=== PATIENT | male | born 1990 | race Caucasian/White ===

== ENCOUNTER → 2018-07-21 09:15 | Outpatient (CLI) | payer BC, SELFPAY ==
--- NOTE | 2018-07-21 09:19 | RAD_ITS ---
STUDY: AIR-CONTRAST UPPER GI SERIES. REASON FOR EXAM: Male, 28 years old. Dyspepsia. FLUOROSCOPY TIME (if supplied): (0:44) minutes/seconds. 19 images were obtained. TECHNIQUE: The patient ingested barium. Multiple images of the esophagus, stomach and duodenum were obtained. COMPARISON: None. FINDINGS: The esophagus is unremarkable. There is no evidence of obstruction. No gastroesophageal reflux. No mass lesion is seen. The stomach and duodenum are unremarkable. There is no evidence of ulceration. No mass lesion is seen. The patient is status post cholecystectomy. RAD/Upper GI Series Only IMPRESSION: Unremarkable examination. Electronically Signed: Ryan Bradley, at 10:11 EDT , Service support ,
== END ==
PROVIDERS: Family Provider Family Medicine; PCP Family Medicine; Referring Provider Family Medicine; Visit Provider Family Medicine
DX: R10.13 Epigastric pain (principal)
CPT/HCPCS: 74246

== ENCOUNTER 2020-01-16 11:00 | Outpatient (RCR) | payer SELFPAY | END 2020-01-16 23:59 | disposition home or self-care (01) | LOC: NS 11:00 | PROVIDERS: PCP Family Medicine; Visit Provider Family Medicine | DX: Z71.3 Dietary counseling and surveillance (principal); E66.9 Obesity, unspecified | CPT/HCPCS: 97802; 97803 ==

== ENCOUNTER → 2020-10-19 14:42 | Outpatient (CLI) | payer BC, SELFPAY ==
[2020-10-19 18:36] LABS: ALB/GLOB Ratio 0.9 RATIO (0.9-2.4); AST(SGOT) 19 U/L (15-37); Alanine Aminotransfer ALT/SGPT 29 U/L (16-61); Albumin, Serum 3.7 g/dL (3.2-5.0); Alkaline Phosphatase 70 U/L (45-117); Anion Gap 8 (5-15); BUN 9 mg/dL (7-18); BUN/Creat Ratio 12.2 RATIO (10-20); Calcium,Total 9.1 mg/dL (8.5-10.1); Chloride 106 mmol/L (98-107); Cholesterol 172 mg/dL (200); Creatinine, Serum 0.74 mg/dL (0.70-1.30); EST Glomerular Filtration Rate 130 mL/min (>60); Est Glom Filt Rate - Afr Amer 157 mL/min (>60); Globulin 4.3 g/dL (2.2-4.2); Glucose 87 mg/dL (74-106); High Density Lipoprotein 37 mg/dL; Sodium Level 138 mmol/L (136-145); Thyroid Stim Hormone (TSH) 1.02 uIU/mL (0.358-3.74); Triglycerides 121 mg/dL; Very Low Density Lipoprotein 24 mg/dL (5-40)
== END ==
LOC: MFPLAB 14:46
PROVIDERS: PCP Family Medicine; Visit Provider Family Medicine
DX: E66.9 Obesity, unspecified (principal)
CPT/HCPCS: 36415; 80053; 80061; 84403; 84443

== ENCOUNTER → 2022-05-29 | Outpatient (CLI) | payer BC, SELFPAY ==
[2022-05-29 15:59] LABS: Anion Gap 5 (5-15); BUN 13 mg/dL (7-18); BUN/Creat Ratio 14.2 RATIO (10-20); Calcium,Total 9.1 mg/dL (8.5-10.1); Chloride 107 mmol/L (98-107); Cholesterol 140 mg/dL (200); Creatinine, Serum 0.91 mg/dL (0.70-1.30); EST Glomerular Filtration Rate 101 mL/min (>60); Est Glom Filt Rate - Afr Amer 122 mL/min (>60); Glucose 97 mg/dL (74-106); High Density Lipoprotein 34 mg/dL; Potassium 3.8 mmol/L (3.5-5.1); Sodium Level 138 mmol/L (136-145); Triglycerides 105 mg/dL; Very Low Density Lipoprotein 21 mg/dL (5-40)
== END | disposition home or self-care (01) ==
LOC: MFPLAB 11:30
PROVIDERS: PCP Family Medicine; Referring Provider Family Medicine; Visit Provider Family Medicine
DX: Z13.1 Encounter for screening for diabetes mellitus (principal); Z13.820 Encounter for screening for osteoporosis; R79.89 Other specified abnormal findings of blood chemistry
CPT/HCPCS: 36415; 80048; 80061; 84403

== ENCOUNTER 2023-03-17 14:08 | Outpatient (RCR) | payer BC, SELFPAY | END 2023-03-25 23:59 | LOC: NS 14:08 | PROVIDERS: PCP Family Medicine; Visit Provider Internal Medicine Pulmonary Disease | DX: Z71.3 Dietary counseling and surveillance (principal); E66.01 Morbid (severe) obesity due to excess calories; Z68.43 Body mass index [BMI] 50.0-59.9, adult; G47.33 Obstructive sleep apnea (adult) (pediatric); R09.02 Hypoxemia | CPT/HCPCS: 97802 ==

== ENCOUNTER 2023-04-16 08:00 | Outpatient (RCR) | payer BC, SELFPAY | END 2023-04-23 23:59 | LOC: NS 08:00 | PROVIDERS: PCP Family Medicine; Referring Provider Internal Medicine Pulmonary Disease; Visit Provider Internal Medicine Pulmonary Disease | DX: Z71.3 Dietary counseling and surveillance (principal); E66.01 Morbid (severe) obesity due to excess calories; Z68.44 Body mass index [BMI] 60.0-69.9, adult; G47.33 Obstructive sleep apnea (adult) (pediatric); R09.02 Hypoxemia | CPT/HCPCS: 97803 ==

== ENCOUNTER 2023-05-07 09:00 | Outpatient (RCR) | payer BC, SELFPAY | END 2023-05-24 23:59 | LOC: NS 09:00 | PROVIDERS: PCP Family Medicine; Referring Provider Internal Medicine Pulmonary Disease; Visit Provider Internal Medicine Pulmonary Disease | DX: Z71.3 Dietary counseling and surveillance (principal); E66.01 Morbid (severe) obesity due to excess calories; Z68.44 Body mass index [BMI] 60.0-69.9, adult; G47.33 Obstructive sleep apnea (adult) (pediatric); R09.02 Hypoxemia | CPT/HCPCS: 97803 ==

== ENCOUNTER 2023-06-11 08:29 | Outpatient (RCR) | payer BC, SELFPAY | END 2023-06-23 23:59 | LOC: NS 08:29 | PROVIDERS: PCP Family Medicine; Referring Provider Internal Medicine Pulmonary Disease; Visit Provider Internal Medicine Pulmonary Disease | DX: Z71.3 Dietary counseling and surveillance (principal); E66.01 Morbid (severe) obesity due to excess calories; Z68.44 Body mass index [BMI] 60.0-69.9, adult; G47.33 Obstructive sleep apnea (adult) (pediatric); R09.02 Hypoxemia | CPT/HCPCS: 97803 ==

== ENCOUNTER 2023-07-16 08:47 | Outpatient (RCR) | payer BC, SELFPAY | END 2023-07-24 23:59 | LOC: NS 08:47 | PROVIDERS: PCP Family Medicine; Referring Provider Internal Medicine Pulmonary Disease; Visit Provider Internal Medicine Pulmonary Disease | DX: Z71.3 Dietary counseling and surveillance (principal); E66.01 Morbid (severe) obesity due to excess calories; Z68.44 Body mass index [BMI] 60.0-69.9, adult; G47.33 Obstructive sleep apnea (adult) (pediatric); R09.02 Hypoxemia | CPT/HCPCS: 97803 ==

== ENCOUNTER 2023-08-20 08:57 | Outpatient (RCR) | payer BC, SELFPAY | END 2023-08-23 23:59 | LOC: NS 08:57 | PROVIDERS: PCP Family Medicine; Referring Provider Internal Medicine Pulmonary Disease; Visit Provider Internal Medicine Pulmonary Disease | DX: Z71.3 Dietary counseling and surveillance (principal); E66.01 Morbid (severe) obesity due to excess calories; Z68.44 Body mass index [BMI] 60.0-69.9, adult; G47.33 Obstructive sleep apnea (adult) (pediatric); R09.02 Hypoxemia | CPT/HCPCS: 97803 ==

== ENCOUNTER 2023-09-17 08:58 | Outpatient (RCR) | payer BC, SELFPAY | END 2023-09-23 23:59 | LOC: NS 08:58 | PROVIDERS: PCP Family Medicine; Referring Provider Internal Medicine Pulmonary Disease; Visit Provider Internal Medicine Pulmonary Disease | DX: Z71.3 Dietary counseling and surveillance (principal); E66.01 Morbid (severe) obesity due to excess calories; Z68.44 Body mass index [BMI] 60.0-69.9, adult; G47.33 Obstructive sleep apnea (adult) (pediatric); R09.02 Hypoxemia | CPT/HCPCS: 97803 ==

== ENCOUNTER 2023-10-29 08:51 | Outpatient (RCR) | payer BC, SELFPAY | END 2023-11-23 23:59 | LOC: NS 08:51 | PROVIDERS: PCP Family Medicine; Referring Provider Internal Medicine Pulmonary Disease; Visit Provider Internal Medicine Pulmonary Disease | DX: Z71.3 Dietary counseling and surveillance (principal); E66.01 Morbid (severe) obesity due to excess calories; Z68.43 Body mass index [BMI] 50.0-59.9, adult; G47.33 Obstructive sleep apnea (adult) (pediatric); R09.02 Hypoxemia | CPT/HCPCS: 97803 ==

== ENCOUNTER 2023-12-21 10:32 | Emergency (ER) | payer BC, SELFPAY ==
[2023-12-21 10:34] VITALS: BP 152/96; PULSE 98; RESP 18; TEMP 36.6; O2SAT 98
--- NOTE | 2023-12-21 11:25 | EKG12_ITS ---
Test Reason : Blood Pressure : / mmHG Vent. Rate : 085 BPM Atrial Rate : 085 BPM P-R Int : 208 ms QRS Dur : 118 ms QT Int : 368 ms P-R-T Axes : 046 -06 017 degrees QTc Int : 437 ms Normal sinus rhythm with sinus arrhythmia Incomplete right bundle branch block Borderline ECG Confirmed by RACIEL REYES, FELIPE ([id number]), electronic news gathering editor ALISE GREEN ([id number]) on 12/22/2023 7:55:49 AM Referred By: Confirmed By:FELIPE SCHRADER MD
--- NOTE | 2023-12-21 11:26 | EX.ED.DYSGE1 ---
HPI History of Present Illness Chief Complaint: Dizziness Informant: patient Narrative Narrative: 33-year-old male presenting to the emergency room with a chief complaint of dizziness. Patient states that last he saw his primary care doctor and received a flu shot. Over the following several days the patient states that he feels a dizziness. When asked what this means to him he states is not that the room spinning notes that when he walks on anything other than concrete he feels more off balance. He states that he feels worse when he gets up to move. He states his arms and his legs seem to be moving okay and he feels coordinated when he goes to reach for something. Yesterday had a short frontal headache. He notes nausea with eating. He denies black or bloody stools. No urinary symptoms. No URI symptoms. No fevers. He denies any history of cardiac renal or bone marrow diseases. PFSH PFS Home Medications ?Medication ?Instructions ?Recorded ?Last Taken ?Type No Known/Unobtainable [No Known 09/10/16 Unknown History Home Medications] Allergy/AdvReac Type Severity Reaction Status Date / Time No Known Allergies Allergy Verified 12/21/23 10:37 Social History Smoking Status: Never smoker ROS ROS ED ROS Narrative Dizziness Constitutional Constitutional ED: Denies chills, fever(s) or weight loss Eyes Eyes: Denies change in vision or diplopia ENT ENT ED: Denies ear pain, rhinorrhea or sore throat Cardiovascular Cardiovascular: Denies chest pain, orthopnea, palpitations or racing heartbeat Respiratory/Chest Respiratory/Chest: Denies cough, dyspnea or orthopnea Gastrointestinal Gastrointestinal: Reports nausea; Denies abdominal pain, diarrhea or vomiting Genitourinary Genitourinary ED: Denies dysuria, hematuria or urinary frequency Musculoskeletal Musculoskeletal: Denies arthralgias or myalgias Integumentary Denies abscess or rash Neurologic Neurologic: Reports headache(s); Denies paresthesias or weakness Psychiatric Psychiatric: Denies anxiety, depression, suicidal ideation or suicidal thoughts Endocrine Endocrinology: Denies polydipsia, polyphagia or polyuria Allergic/Immunologic Allergic/Immunologic ED: Denies mouth swelling, tongue swelling or urticaria EXAM Physical Exam Const Vital Signs: 12/21/23 10:34 12/21/23 12:33 Temperature 97.9 F Temperature Source Oral Pulse Rate 98 81 Respiratory Rate 18 24 H Blood Pressure 152/96 H 142/87 H Blood Pressure Mean 114 105 Pulse Ox 98 Oxygen Delivery Method Room Air Positive well nourished, well developed and obese General Appearance ED: well developed and NAD; Negative for pallor Nutritional Appearance: obese HEENT Reports normocephalic, head/scalp atraumatic and moist mucous membranes Eyes PERRL and EOMs intact bilaterally Eyes Narrative: No nystagmus General Eye ED: Negative for pale conjunctiva Neck no lymphadenopathy, supple and no JVD Resp normal respiratory effort and clear to auscultation bilaterally Cardio regular rate, regular rhythm and no murmurs GI normal to inspection, nondistended, normoactive bowel sounds and non-tender Palpation: soft Back/Spine no CVA tenderness and normal ROM Extremity normal to inspection General Extremety ED: Negative for edema General Extremity: Negative for edema Neuro oriented x3 and CN's II-XII intact bilaterally Sensorium / Orientation: alert Motor Exam: strength 5/5 throughout Psych mental status grossly normal Mood & Affect: Negative for depressed or tearful Skin no rashes or lesions noted and no wounds General Skin Exam: elasticity normal; Negative for jaundice or pallor MDM MDM MDM Narrative Medical decision making narrative: Differential diagnosis includes but not limited to anemia dehydration hepatobiliary dysfunction ACS Patient's EKG shows no concerning features. Hemoglobin 12.7 normal MCV. Electrolytes within normal limits glucose 108 normal liver enzymes troponin is 4. My independent interpretation of the chest x-ray is no acute process. CT of the brain was obtained and is negative. Clinically I do not see an emergent condition. The patient I believe can be discharged home safely with PCP follow-up. Would recommend returning if worsening symptoms or concerns. History & Record Review Discussion w/independent historian: Patient Lab Data Attestation: I reviewed the patient's lab results. Labs: Laboratory Results - last 24 hr 12/21/23 11:33 WBC 7.9 RBC 4.61 Hgb 12.7 L Hct 38.7 L MCV 83.9 MCH 27.5 MCHC 32.8 RDW Std Deviation 42.0 RDW Coeff of Loki 13.8 Plt Count 250 MPV 9.0 Immature Gran % (Auto) 0.500 Neut % (Auto) 70.7 H Lymph % (Auto) 19.9 [place] % (Auto) 7.6 Eos % (Auto) 1.0 Baso % (Auto) 0.3 Absolute Neuts (auto) 5.6 Absolute Lymphs (auto) 1.57 Nucleated RBC % 0 Sodium 140 Potassium 3.7 Chloride 108 H Carbon Dioxide 27.0 Anion Gap 6 BUN 13 Creatinine 0.86 Est GFR (MDRD) Af Amer 130 Est GFR (MDRD) Non-Af 107 BUN/Creatinine Ratio 15.1 Glucose 108 H Calcium 9.1 Total Bilirubin 0.70 Direct Bilirubin 0.20 AST 11 L ALT 18 Alkaline Phosphatase 59 Troponin I High Sens 4 Total Protein 7.7 Albumin 3.6 Globulin 4.1 Radiography Diagnostic Testing: Clinical Impression(s) from Imaging Studies Brain CT 12/21/23 11:45 IMPRESSION: Normal unenhanced CT scan of the brain. Electronically Signed: Ryan Bradley MD at 12:45 EDT , Chest X-Ray 12/21/23 11:50 IMPRESSION: Pulmonary vascular congestion. Electronically Signed: Ryan Bradley MD at 12:43 EDT , EKG Initial EKG: Attestation: I personally reviewed and interpreted this EKG as follows: Comments: Normal sinus rhythm ventricular rate of 85 bpm. Incomplete right bundle branch block noted Discharge Plan Triage Chief Complaint: Dizziness ED Provider: Edmond Alcaraz Dx/Rx/DC Orders Clinical Impression: Dizziness Instructions: ED Dizziness, Uncertain Cause Prescriptions: No Action No Known Home Medications Primary Care Provider: Waldo Alanis Referrals: Waldo Alanis MD [Primary Care Provider] - 1 Week if not improving Print Language: Mongolian Disposition Disposition: Home, Self Care Discharge Date/Time: 12/21/23 13:12
--- NOTE | 2023-12-21 11:45 | CT_ITS ---
STUDY: CT BRAIN WITHOUT CONTRAST REASON FOR EXAM: Male, 33 years old. Dizziness/headache RADIATION DOSAGE (If Supplied By Facility): CTDIvol = ( 44.99 ) mGy, DLP = ( 812.98 ) mGycm TECHNIQUE: Transaxial CT imaging of the brain was performed without administration of intravenous contrast material. Individualized dose optimization techniques were used for this CT. COMPARISON: No relevant priors. FINDINGS: Normal soft tissue structures. Normal calvarium. There is asymmetry of the ventricles consistent with an anatomic variant. Normal white matter tracts of the cerebral hemispheres. Normal basal ganglia and thalami. Normal brainstem. Normal cerebellum. There is no intracranial hemorrhage. There are no findings of an acute ischemic infarction. Minimal degree of mucosal thickening along the inferior aspect of the left maxillary sinus. CT/Brain/Head without Contrast IMPRESSION: Normal unenhanced CT scan of the brain. Electronically Signed: Ryan Bradley MD at 12:45 EDT ,
[2023-12-21 11:50] LABS: Absolute Lymphocyte Count 1.57 X10^3/uL (0.83-4.51); Absolute Neutrophil Count 5.6 X10^3/uL (2.0-7.7); Basophil# 0.02 X10^3/uL; Basophil% 0.3 % (0-1); Eosinophil# 0.08 X10^3/uL; Hematocrit 38.7 % (40-54); Hemoglobin 12.7 g/dL (13.0-16.5); Lymphocyte # 1.57 X10^3/ul (0.83-4.51); Lymphocyte % 19.9 % (19-41); Mean Corp Hgb Conc 32.8 g/dL (32-36); Mean Corpuscular Hgb 27.5 pg (27.0-32.0); Mean Corpuscular Volume 83.9 fL (80-94); Monocyte% 7.6 % (0-10); NRBC Flagged by Analyzer 0 % (0-5); Neutrophil # 5.58 X10^3/uL (2.7-7.7); Neutrophil % 70.7 % (47-70); Platelet Count 250 K/mm3 (150-450); RBC Distribution Width CV 13.8 % (11.6-14.6); Red Blood Count 4.61 M/mm3 (4.6-6.2); White Blood Count 7.9 K/mm3 (4.4-11.0)
--- NOTE | 2023-12-21 11:50 | RAD_ITS ---
STUDY: X-RAY CHEST REASON FOR EXAM: Male, 33 years old. Dizziness TECHNIQUE: Single AP portable view of the chest. COMPARISON: Comparison is made with prior study of September 10, 2016. FINDINGS: EKG electrodes are seen. Vascular congestion. There is no demonstrated pleural abnormality. Normal size heart. Normal mediastinum and daisy. Normal visualized pulmonary arteries. Normal visualized aortic arch and descending thoracic aorta. Normal visualized thoracic spine. Normal visualized ribs, clavicles, and shoulders. There is no demonstrated abnormality of the visualized soft tissue structures of the upper abdomen. RAD/Chest 1 View (Portable) IMPRESSION: Pulmonary vascular congestion. Electronically Signed: Ryan Bradley MD at 12:43 EDT ,
[2023-12-21 12:06] LABS: AST(SGOT) 11 U/L (15-37); Alanine Aminotransfer ALT/SGPT 18 U/L (16-61); Albumin, Serum 3.6 g/dL (3.2-5.0); Alkaline Phosphatase 59 U/L (45-117); Anion Gap 6 (5-15); BUN 13 mg/dL (7-18); BUN/Creat Ratio 15.1 RATIO (10-20); Calcium,Total 9.1 mg/dL (8.5-10.1); Chloride 108 mmol/L (98-107); Creatinine, Serum 0.86 mg/dL (0.70-1.30); EST Glomerular Filtration Rate 107 mL/min (>60); Est Glom Filt Rate - Afr Amer 130 mL/min (>60); Globulin 4.1 g/dL (2.2-4.2); Glucose 108 mg/dL (74-106); Potassium 3.7 mmol/L (3.5-5.1); Protein, Total 7.7 g/dL (6.4-8.2); Sodium Level 140 mmol/L (136-145); Troponin-I HS 4 pg/mL (3.0-78.0)
[2023-12-21 12:33] VITALS: BP 142/87; PULSE 81; RESP 24
== END 2023-12-21 13:12 | disposition home or self-care (01) ==
PROVIDERS: Emergency Provider Emergency Medicine; PCP Family Medicine; Visit Provider Emergency Medicine
DX: R42 Dizziness and giddiness (principal); E66.9 Obesity, unspecified
CPT/HCPCS: 70450; 71045; 80048; 80076; 84484; 85025; 93005; 99284

== ENCOUNTER 2023-12-24 09:30 | Outpatient (RCR) | payer BC, SELFPAY | END 2023-12-24 23:59 | LOC: NS 09:30 | PROVIDERS: PCP Family Medicine; Referring Provider Internal Medicine Pulmonary Disease; Visit Provider Internal Medicine Pulmonary Disease | DX: Z71.3 Dietary counseling and surveillance (principal); E66.01 Morbid (severe) obesity due to excess calories; Z68.44 Body mass index [BMI] 60.0-69.9, adult; G47.33 Obstructive sleep apnea (adult) (pediatric); R09.02 Hypoxemia | CPT/HCPCS: 97803 ==

== ENCOUNTER 2024-01-11 13:58 | Outpatient (RCR) | payer BC, SELFPAY | END 2024-01-23 23:59 | LOC: NS 13:58 | PROVIDERS: PCP Family Medicine; Referring Provider Internal Medicine Pulmonary Disease; Visit Provider Internal Medicine Pulmonary Disease | DX: Z71.3 Dietary counseling and surveillance (principal); E66.01 Morbid (severe) obesity due to excess calories; Z68.44 Body mass index [BMI] 60.0-69.9, adult; G47.33 Obstructive sleep apnea (adult) (pediatric); R09.02 Hypoxemia | CPT/HCPCS: 97803 ==

== ENCOUNTER 2024-02-22 14:00 | Outpatient (RCR) | payer BC, SELFPAY | END 2024-02-23 23:59 | LOC: NS 14:00 | PROVIDERS: PCP Family Medicine; Referring Provider Internal Medicine Pulmonary Disease; Visit Provider Internal Medicine Pulmonary Disease | DX: Z71.3 Dietary counseling and surveillance (principal); E66.01 Morbid (severe) obesity due to excess calories; Z68.43 Body mass index [BMI] 50.0-59.9, adult; G47.33 Obstructive sleep apnea (adult) (pediatric); R09.02 Hypoxemia | CPT/HCPCS: 97803 ==

== ENCOUNTER 2024-03-17 09:00 | Outpatient (RCR) | payer BC, SELFPAY | END 2024-03-25 23:59 | LOC: NS 09:00 | PROVIDERS: PCP Family Medicine; Referring Provider Internal Medicine Pulmonary Disease; Visit Provider Internal Medicine Pulmonary Disease | DX: Z71.3 Dietary counseling and surveillance (principal); E66.01 Morbid (severe) obesity due to excess calories; Z68.44 Body mass index [BMI] 60.0-69.9, adult | CPT/HCPCS: 97803 ==

== ENCOUNTER 2024-04-14 09:00 | Outpatient (RCR) | payer BC, SELFPAY | END 2024-04-22 23:59 | LOC: NS 09:00 | PROVIDERS: PCP Family Medicine; Referring Provider Internal Medicine Pulmonary Disease; Visit Provider Internal Medicine Pulmonary Disease | DX: Z71.3 Dietary counseling and surveillance (principal); E66.01 Morbid (severe) obesity due to excess calories; Z68.44 Body mass index [BMI] 60.0-69.9, adult | CPT/HCPCS: 97803 ==

== ENCOUNTER 2024-05-19 09:00 | Outpatient (RCR) | payer BC, SELFPAY | END 2024-05-23 23:59 | LOC: NS 09:00 | PROVIDERS: PCP Family Medicine; Referring Provider Internal Medicine Pulmonary Disease; Visit Provider Internal Medicine Pulmonary Disease | DX: Z71.3 Dietary counseling and surveillance (principal); E66.01 Morbid (severe) obesity due to excess calories; Z68.44 Body mass index [BMI] 60.0-69.9, adult | CPT/HCPCS: 97803 ==

== ENCOUNTER 2024-06-08 16:18 | Outpatient (RCR) | payer BC, SELFPAY | END 2024-06-22 23:59 | LOC: NS 16:18 | PROVIDERS: PCP Family Medicine; Referring Provider Internal Medicine Pulmonary Disease; Visit Provider Internal Medicine Pulmonary Disease | DX: Z71.3 Dietary counseling and surveillance (principal); E66.01 Morbid (severe) obesity due to excess calories; Z68.43 Body mass index [BMI] 50.0-59.9, adult | CPT/HCPCS: 97803 ==

== ENCOUNTER 2024-07-07 08:30 | Outpatient (RCR) | payer BC, SELFPAY | END 2024-07-23 23:59 | LOC: NS 08:30 | PROVIDERS: PCP Family Medicine; Referring Provider Internal Medicine Pulmonary Disease; Visit Provider Internal Medicine Pulmonary Disease | DX: Z71.3 Dietary counseling and surveillance (principal); E66.01 Morbid (severe) obesity due to excess calories; Z68.44 Body mass index [BMI] 60.0-69.9, adult | CPT/HCPCS: 97803 ==

== ENCOUNTER 2024-08-11 08:30 | Outpatient (RCR) | payer BC, SELFPAY | END 2024-08-22 23:59 | LOC: NS 08:30 | PROVIDERS: PCP Family Medicine; Referring Provider Internal Medicine Pulmonary Disease; Visit Provider Internal Medicine Pulmonary Disease | DX: Z71.3 Dietary counseling and surveillance (principal); E66.01 Morbid (severe) obesity due to excess calories; Z68.44 Body mass index [BMI] 60.0-69.9, adult | CPT/HCPCS: 97803 ==

== ENCOUNTER 2024-09-14 13:00 | Outpatient (RCR) | payer BC, SELFPAY | END 2024-09-22 23:59 | LOC: NS 13:00 | PROVIDERS: PCP Family Medicine; Referring Provider Internal Medicine Pulmonary Disease; Visit Provider Internal Medicine Pulmonary Disease | DX: Z71.3 Dietary counseling and surveillance (principal); E66.01 Morbid (severe) obesity due to excess calories; Z68.44 Body mass index [BMI] 60.0-69.9, adult | CPT/HCPCS: 97803 ==

== ENCOUNTER 2024-10-20 08:30 | Outpatient (RCR) | payer BC, SELFPAY | END 2024-10-23 23:59 | LOC: NS 08:30 | PROVIDERS: PCP Family Medicine; Referring Provider Internal Medicine Pulmonary Disease; Visit Provider Internal Medicine Pulmonary Disease | DX: Z71.3 Dietary counseling and surveillance (principal); E66.01 Morbid (severe) obesity due to excess calories; Z68.43 Body mass index [BMI] 50.0-59.9, adult | CPT/HCPCS: 97803 ==

== ENCOUNTER 2024-11-03 11:37 | Outpatient (RCR) | payer BC, SELFPAY | END 2024-11-22 23:59 | LOC: NS 11:37 | PROVIDERS: PCP Family Medicine; Referring Provider Internal Medicine Pulmonary Disease; Visit Provider Internal Medicine Pulmonary Disease | DX: Z71.3 Dietary counseling and surveillance (principal); E66.01 Morbid (severe) obesity due to excess calories; Z68.44 Body mass index [BMI] 60.0-69.9, adult | CPT/HCPCS: 97803 ==

== ENCOUNTER → 2024-12-05 | Outpatient (CLI) | payer BC, SELFPAY ==
[2024-12-05 18:24] LABS: AST(SGOT) 18 U/L (<=37); Alanine Aminotransfer ALT/SGPT 19 U/L (<=46); Albumin, Serum 4.3 g/dL (3.5-5.0); Alkaline Phosphatase 63 U/L (40-129); Anion Gap 12 (5-15); BUN 11 mg/dL (4-19); BUN/Creat Ratio 13.5 RATIO (10-20); CORTISOL PM 11.20 ug/dL (2.68-10.50); Calcium,Total 9.7 mg/dL (7.6-11.0); Carbon Dioxide 23.4 mmol/L (21.0-32.0); Chloride 104 mmol/L (98-108); Follicle Stimulating Hormone 10.9 mIU/mL; Globulin 3.5 g/dL (2.2-4.2); Glucose 109 mg/dL (70-99); Potassium 4.0 mmol/L (3.3-5.1)
== END | disposition home or self-care (01) ==
LOC: MFPLAB 14:16
PROVIDERS: PCP Family Medicine; Visit Provider Family Medicine
DX: E66.01 Morbid (severe) obesity due to excess calories (principal); R79.89 Other specified abnormal findings of blood chemistry
CPT/HCPCS: 36415; 80053; 82533; 83001; 83002; 84270; 84403; 84443

== ENCOUNTER 2024-12-22 09:00 | Outpatient (RCR) | payer BC, SELFPAY | END 2024-12-23 23:59 | LOC: NS 09:00 | PROVIDERS: PCP Family Medicine; Referring Provider Internal Medicine Pulmonary Disease; Visit Provider Internal Medicine Pulmonary Disease | DX: Z71.3 Dietary counseling and surveillance (principal); E66.01 Morbid (severe) obesity due to excess calories; Z68.44 Body mass index [BMI] 60.0-69.9, adult | CPT/HCPCS: 97803 ==

== ENCOUNTER 2025-01-05 08:33 | Outpatient (RCR) | payer BC, SELFPAY | END 2025-01-22 23:59 | LOC: NS 08:33 | PROVIDERS: PCP Family Medicine; Referring Provider Internal Medicine Pulmonary Disease; Visit Provider Internal Medicine Pulmonary Disease | DX: Z71.3 Dietary counseling and surveillance (principal); E66.01 Morbid (severe) obesity due to excess calories; Z68.44 Body mass index [BMI] 60.0-69.9, adult; G47.33 Obstructive sleep apnea (adult) (pediatric); R09.02 Hypoxemia | CPT/HCPCS: 97803 ==

== ENCOUNTER 2025-01-18 07:26 | Emergency (ER) | payer BC, SELFPAY ==
[2025-01-18 07:27] VITALS: BP 166/97; PULSE 79; RESP 16; TEMP 35.6; O2SAT 100
--- NOTE | 2025-01-18 07:34 | CT_ITS ---
PROCEDURE: ABDOMEN/PELVIS WITHOUT CONT 01/18/2025 REASON FOR EXAM: RIGHT FLANK PAIN TECHNIQUE: Procedure Code: CTABDPEL Modality: CT Procedure: ABDOMEN/PELVIS WITHOUT CONT Noncontrast technique limits evaluation of the abdominal and pelvic viscera. Coronal and Sagittal reconstruction series were provided. One or more dose reduction techniques were used (e.g., Automated exposure control, adjustment of the mA and/or kV according to patient size, use of iterative reconstruction technique). RADIATION DOSE SUMMARY: CTDlvol: 34.45 mGy DLP: 1963 mGycm COMPARISON: None. FINDINGS: LUNG BASES: No basilar airspace consolidation or pleural effusion. Two right lower lobe nodules, the largest is 5.5 mm. LIVER: Enlarged measuring 23.3 cm in length. Diffuse decrease in parenchymal density. GALLBLADDER: Prior cholecystectomy. BILE DUCTS: No ductal dilation. PANCREAS: Unremarkable. SPLEEN: Unremarkable. ADRENAL GLANDS: Unremarkable. KIDNEYS/URETERS Unremarkable on the left. A 3.1 mm calculus is present in the right ureterovesicular junction (UVJ). Mild right hydroureteronephrosis. No renal calculi. STOMACH AND BOWEL: No obstruction or perforation. No wall thickening. No CT evidence of colitis or acute diverticulitis. APPENDIX: Normal-appearing appendix. No CT evidence for appendicitis. RETRO/PERITONEUM: No free fluid. No free air. LYMPH NODES: No lymphadenopathy. PELVIC ORGANS: Decompressed urinary bladder. Unremarkable prostate and seminal vesicles. VASCULATURE: No aortic aneurysm. ABDOMINAL WALL AND SOFT TISSUES: Dependent edema in the central lower back. BONES: No fracture or suspicious osseous abnormality. CT/Abdomen/Pelvis without Cont IMPRESSION: 1. Mild right obstructive uropathy due to a 3.1 mm right UVJ calculus. 2. Hepatomegaly with diffuse hepatic steatosis. 3. Right lower lobe lung nodules. According to the 2017 Fleischner criteria, if the patient is low risk, no routine follow-up is recommended. If the patient is high risk, an optional CT at 12 months is re commended. Reading Location: [facility]
--- NOTE | 2025-01-18 07:35 | EX.ED.DYSGE1 ---
HPI History of Present Illness Chief Complaint: Flank Pain Detail of Chief Complaint: Right flank pain Informant: patient Narrative Narrative: Patient presents with right flank pain that started about 3 hours ago. Sudden onset. Woke him up from sleep. No injury known. Pain does not radiate to the abdomen. He does not have a gallbladder. He denies nausea or vomiting. He denies urinary symptoms. Currently pain is 5 or 6 out of 10 but at times goes higher. No history of kidney stones. PFSH PFS Medical History (Updated 01/18/25 @ 08:[address] Deonna Antoine DO) Obesity Home Medications Medication Instructions Recorded Last Taken Type hydrocodone-acetaminophen 5-325mg 1 tab PO Q4H PRN PRN Pain 2 days 01/18/25 Unknown Rx 5mg-325mg #14 TABLETS naproxen 500 mg tablet 500 mg PO BID #14 tabs 01/18/25 Unknown Rx Allergy/AdvReac Type Severity Reaction Status Date / Time No Known Allergies Allergy Verified 01/18/25 07:27 Social History Smoking Status: Never smoker ROS ROS ED Review of Systems ROS Unobtainable: other Constitutional Constitutional ED: Reports lethargy; Denies chills, fever(s), sweats or weight loss Eyes Eyes: Denies blurry vision, change in vision or diplopia ENT ENT ED: Denies rhinorrhea or sore throat Cardiovascular Cardiovascular: Denies chest pain, orthopnea or racing heartbeat Respiratory/Chest Respiratory/Chest: Denies cough, dyspnea, dyspnea on exertion, orthopnea or sputum Gastrointestinal Gastrointestinal: Denies abdominal pain, diarrhea, nausea or vomiting Genitourinary Genitourinary ED: Denies dysuria, hematuria or urinary frequency Musculoskeletal Musculoskeletal: Reports back pain; Denies arthralgias, myalgias or neck pain Integumentary Denies abscess, Abrasions or rash Neurologic Neurologic: Denies headache(s) or weakness Psychiatric Psychiatric: Denies anxiety, depression or suicidal thoughts Endocrine Endocrinology: Denies polydipsia, polyphagia or polyuria Hematologic/Lymphatic Hematologic/Lymphatic: Denies easy bleeding, easy bruising or lymphadenopathy Allergic/Immunologic Allergic/Immunologic ED: Denies mouth swelling, tongue swelling or urticaria EXAM Physical Exam Const Vital Signs: 01/18/25 07:27 Temperature 96.0 F L Temperature Source Temporal Pulse Rate 79 Respiratory Rate 16 Blood Pressure 166/97 H Blood Pressure Mean 120 Pulse Ox 100 Oxygen Delivery Method Room Air Positive well nourished and well developed General Appearance ED: well developed and NAD HEENT Reports TM's clear and moist mucous membranes normocephalic and atraumatic; Negative for trauma or tenderness Tympanic Membrane ED: Yes TM's clear Eyes PERRL and EOMs intact bilaterally General Eye ED: Negative for pale conjunctiva or scleral icterus Neck no lymphadenopathy, supple and no JVD General: Negative for tenderness Chest Wall inspection of chest normal and palpation of chest normal Chest: Negative for tenderness Resp normal respiratory effort and clear to auscultation bilaterally Effort and Inspection: Negative for respiratory distress or pain with movement Auscultation: Negative for rhonchi, wheezes or diminished lung sounds Cardio regular rate, regular rhythm, S1 normal heart sound, S2 normal heart sound and no murmurs Peripheral Pulses: pulses 2+ throughout GI normal to inspection, nondistended, normoactive bowel sounds, soft to palpation, non-tender, non-distended and no masses GI Narrative: Patient morbidly obese. Abdomen is not tender. No rebound, rigidity, or peritoneal signs. Back/Spine no thoracic nor lumbar tenderness; Negative for no CVA tenderness Back/Spine Narrative: Mild CVA tenderness on the right Extremity normal to inspection General Extremety ED: Negative for edema General Extremity: Negative for edema Neuro oriented x3, CN's II-XII intact bilaterally, no sensory deficits noted and gait normal Sensorium / Orientation: awake, alert, oriented to person, oriented to place and oriented to time Motor Exam: strength 5/5 throughout and strength abnormal Psych mental status grossly normal Skin no rashes or lesions noted and no wounds MDM MDM MDM Narrative Medical decision making narrative: Patient presents with sudden onset of right-sided flank pain that started 3 hours prior to coming in. Clinically he looks well. No injury. No history of kidney stones. In the differential would be kidney stone or UTI or musculoskeletal back pain. Is not really having abdominal pain and he has had prior cholecystectomy. I will establish. Initially he was given Toradol IV and he had minimal pain relief with that. He was then given Dilaudid and Zofran and he had good pain relief with that. CBC with differential obtained showed a white count of 7.6 with hemoglobin of 13.4 and platelet count of 262. Urinalysis without signs of infection but did have 0-[address] scan of the abdomen and pelvis obtained showed a 3.1 mm right UVJ calculus with mild hydronephrosis and hydroureter. Patient will be given urine strainers for home. He will be given a prescription for naproxen and hydrocodone for pain. Will give referral to urology for follow-up. He is advised to return if worsening pain, fever, vomiting, or condition should worsen in any way. Lab Data Attestation: I reviewed the patient's lab results. Labs: Laboratory Results - last 24 hr 01/18/25 01/18/25 07:35 07:44 WBC 7.6 RBC 4.80 Hgb 13.4 Hct 41.5 MCV 86.5 MCH 27.9 MCHC 32.3 RDW Std Deviation 43.8 RDW Coeff of Loki 13.9 Plt Count 262 MPV 9.6 Immature Gran % (Auto) 0.500 Neut % (Auto) 65.1 Lymph % (Auto) 21.7 [place] % (Auto) 10.1 H Eos % (Auto) 2.2 Baso % (Auto) 0.4 Absolute Neuts (auto) 4.9 Absolute Lymphs (auto) 1.65 Nucleated RBC % 0 Urine Color Yellow Urine Clarity Sl. Cloudy Urine pH 5.0 Ur Specific [place] 1.030 Urine Protein 30 H Urine Glucose (UA) Normal Urine Ketones 5 H Urine Occult Blood 150 H Urine Nitrite Negative Urine Bilirubin Negative Urine Urobilinogen 1 H Ur Leukocyte Esterase 25 H Urine RBC 0-5 SEEN Urine WBC 0-5 SEEN Ur Squamous Epith Cells 0-5 SEEN Urine Bacteria 2+ Urine Mucus 1+ Radiography Diagnostic Testing: Clinical Impression(s) from Imaging Studies Abdomen/Pelvis CT 01/18/25 07:34 IMPRESSION: 1. Mild right obstructive uropathy due to a 3.1 mm right UVJ calculus. 2. Hepatomegaly with diffuse hepatic steatosis. 3. Right lower lobe lung nodules. According to the 2017 Fleischner criteria, if the patient is low risk, no routine follow-up is recommended. If the patient is high risk, an optional CT at 12 months is recommended. Reading Location: [id number] Discharge Plan Triage Chief Complaint: Flank Pain ED Provider: Deonna Antoine Dx/Rx/DC Orders Clinical Impression: Urolithiasis Instructions: ED Kidney Stone with Pain Prescriptions: New hydrocodone-acetaminophen 5-325 mg tablet 1 tab PO Q4H PRN PRN (Reason: Pain) 2 Days Qty: 14 0RF naproxen 500 mg tablet 500 mg PO BID Qty: 14 0RF Primary Care Provider: Waldo Alanis Referrals: Waldo Alanis MD [Primary Care Provider, Family Practice] Ahsan Henry MD [Med Staff - Active Staff, Urology] - 3-5 Days Print Language: Icelandic Disposition Disposition: Home, Self Care
[2025-01-18] MEDS: Ketorolac 30 MG/ML Syringe IV (07:41)
[2025-01-18] MEDS: 0.9% Normal Saline (1000mL) 1,000 ML 150 ML IV (07:42)
[2025-01-18 07:56] LABS: Color, Urine Yellow (Yellow); Glucose, Dipstick Normal (Normal); Ketone-Dipstick 5 mg/dl (Negative); Leukocyte Esterase-Dipstick 25 /ul (Negative); Nitrite-Dipstick Negative (Negative); Occult Blood-Urine 150 /ul (Negative); Protein-Dipstick 30 mg/dl (Negative); Specific Gravity, Urine 1.030 (1.002-1.030); Urine Bilirubin Dipstick Negative (Negative)
--- OUTSIDE RECORDS SUMMARY | 2025-01-18 08:00 | XMS RPT_ITS | CCD ---
Author Organization [facility] Care Team Providers [employer] Name Role Phone Annabelle REYES, Dr. Haas Primary Care Provider Negra REYES, Dr. Satnam Paz Attending Provider Dr. Satnam Omer MD, V Referring [facility] Unavailable Sibilia, Satnam V Attending Unavailable Sibilia, Satnam V Referring Unavailable [facility] Unavailable Sibilia, Satnam V Attending Unavailable Sibilia, Satnam V Referring Unavailable [facility] Unavailable Sibilia, Satnam V Referring Unavailable Sibilia, Satnam V Attending Unavailable [facility] Unavailable Sibilia, Satnam V Attending Unavailable Sibilia, Satnam V Referring Unavailable [facility] Unavailable Sibilia, Satnam V Attending Unavailable Sibilia, Satnam V Referring Unavailable [facility] Unavailable [facility] Attending Unavailable [facility] Unavailable Sibilia, Satnam V Attending Unavailable Sibilia, Satnam V Referring Unavailable Sibilia, Satnam V Referring Unavailable [facility] Unavailable Sibilia, Satnam V Attending Unavailable Sibilia, Satnam V Referring Unavailable [facility] Unavailable Sibilia, Satnam V Attending Unavailable Sibilia, Satnam V Referring Unavailable [facility] Unavailable Sibilia, Satnam V Attending Unavailable Sibilia, Satnam V Referring Unavailable Sibilia, Satnam V Attending Unavailable [facility] Unavailable [facility] Unavailable Sibilia, Satnam V Referring Unavailable Sibilia, Satnam V Attending Unavailable [facility] Unavailable Sibilia, Satnam V Attending Unavailable Sibilia, Satnam V Referring Unavailable [facility] Unavailable Sibilia, Satnam V Attending Unavailable Sibilia, Satnam V Referring Unavailable Problems Problem Classification Problem Date Documented Da te Episodic/Chronic Administrative/social admission (2 sources) Dietary counseling and surveillance; Translations: [Dietary counseling and surveillance] Onset: 12-24-2024 Episodic Conditions associated with dizziness or vertigo (6 sources) Dizziness; Translations: [Dizziness and giddiness] 12-29-2023 Episodic Nonspecific chest pain (11 sources) Atypical chest pain; Translations: [Other chest pain] 09-11-2016 Episodic Other nutritional; endocrine; and metabolic disorders (1 source) Morbid (severe) obesity due to excess calories; Translations: [Morbid (severe) obesity due to excess calories] Onset: 12-20-2024 Chronic Results Test Name Value Interpretation Reference Range Facility Sex Hormone-binding Globulin on 12-07-2024 SHBG 20.5 nmol/L Normal 16.5-55.9 [facility] Comment on above: Order Comment: Order Date: 12/05/24 Order Info: [id number] - SEXHORM Result Comment: Perf ormed at: [facility] [address] [id number] Skiing Instructor: Bar Mccabe PhD, Phone: [phone] Performed By: #### L 5988.2613, C626.2243 #### [facility] [address] [place], [address] Comprehensive Metabolic Prof ilon 12-05-2024 Albumin [Mass/Vol] 4.3 g/dL Normal 3.5-5.0 [facility] Comment on above: Order Comment: Order Date: 12/05/24 Order Info: 0786-1 - CMP Order Date: 12/10/23 Order Info: 3016-3 - TSH Order Info: 0553-1 - FSHLH Performed By: #### L [id number], B171.6447 #### [facility] [address] [place], [address] Albumin/Globulin [Mass ratio] 1.3 {ratio} Normal 0.9-2.4 [facility] Comment on above: Order Comment: Order Date: 12/05/24 Order Info: 0786-1 - CMP Order Date: 12/10/23 Order Info: 3016-3 - TSH Order Info: 0553-1 - FSHLH Performed By: #### L 3100.5060, L500.4050 #### [facility] [address] [place], [address] ALK PHOS 63 U/L Normal 40-129 [facility] Comment on above: Order Comment: Order Date: 12/05/24 Order Info: 0786-1 - CMP Order Date: 12/10/23 Order Info: 3016-3 - TSH Order Info: 0553-1 - FSHLH Performed By: #### L 3100.5060, L500.4050 #### [facility] [address] [place], [place], [address] ALT [Catalytic activity/Vol] 19 U/L Normal <=46 [facility] Comment on above: Order Comment: Order Date: 12/05/24 Order Info: 0786-1 - CMP Order Date: 12/10/23 Order Info: 3016-3 - TSH Order Info: 0553-1 - FSHLH Performed By: #### L 3100.5060, L500.4050 #### [facility] [address] [place], [place], [address] AST [Catalytic activity/Vol] 18 U/L Normal <=37 [facility] Comment on above: Order Comment: Order Date: 12/05/24 Order Info: 0786-1 - CMP Order Date: 12/10/23 Order Info: 3016-3 - TSH Order Info: 0553-1 - FSHLH Performed By: #### L 3100.5060, L500.4050 #### [facility] [address] [place], [address] Bilirubin [Mass/Vol] 0.41 mg/dL Normal 0.00-1.30 [facility] Comment on above: Order Comment: Order Date: 12/05/24 Order Info: 0786-1 - CMP Order Date: 12/10/23 Order Info: 3016-3 - TSH Order Info: 0553-1 - FSHLH Performed By: #### L 3100.5060, L500.4050 #### [facility] [address] [place], [address] BUN/CRE 13.5 RATIO Normal 10-20 [facility] Comment on above: Order Comment: Order Date: 12/05/24 Order Info: 0786-1 - CMP Order Date: 12/10/23 Order Info: 3016-3 - TSH Order Info: 0553-1 - FSHLH Performed By: #### L 3100.5060, L500.4050 #### [facility] [address] [place], [address] Calcium [Mass/Vol] 9.7 mg/dL Normal 7.6-11.0 [facility] Comment on above: Order Comment: Order Date: 12/05/24 Order Info: 0786-1 - CMP Order Date: 12/10/23 Order Info: 3013 - TSH Order Info: 0553-1 - FSHLH Performed By: #### L 3100.5060, L500.4050 #### [facility] [address] [place], [address] Chloride [Moles/Vol] 104 mmol/L Normal 98-108 [facility] Comment on above: Order Comment: Order Date: 12/05/24 Order Info: 0786-1 - CMP Order Date: 12/10/23 Order Info: 3016-3 - TSH Order Info: 0553-1 - FSHLH Performed By: #### L 3100.5060, L500.4050 #### [facility] [address] [place], [address] CO2 [Moles/Vol] 23.4 mmol/L Normal 21.0-32.0 [facility] Comment on above: Order Comment: Order Date: 12/05/24 Order Info: 0786-1 - CMP Order Date: 12/10/23 Order Info: 3016-3 - TSH Order Info: 0553-1 - FSHLH Performed By: #### L 3100.5060, L500.4050 #### [facility] [address] [place], [address] Creatinine [Mass/Vol] 0.78 mg/dL Normal 0.70-1.20 [facility] Comment on above: Order Comment: Order Date: 12/05/24 Order Info: 0786-1 - CMP Order Date: 12/10/23 Order Info: 3016-3 - TSH Order Info: 0553-1 - FSHLH Performed By: #### L 3100.5060, L500.4050 #### [facility] [address] [place], [address] GAP 12 Normal 5-15 [facility] Comment on above: Order Comment: Order Date: 12/05/24 Order Info: 0786-1 - CMP Order Date: 12/10/23 Order Info: 301-3 - TSH Order Info: 0553-1 - FSHLH Performed By: #### L 3100.5060, L500.4050 #### [facility] [address] [place], [address] GFR/1.73 sq M.predicted among non-blacks MDRD (S/P/Bld) [Vol rate/Area] 119 mL/min/{1.73_m2} Normal >60 [facility] Comment on above: Order Comment: Order Date: 12/05/24 Order Info: 0786-1 - CMP Order Date: 12/10/23 Order Info: 3016-3 - TSH Order Info: 0553-1 - FSHLH Result Comment: mL/m in/1.73m2 CKD-EPI Creatinine Equation (2020) Performed By: #### L 3100.5060, L500.4050 #### [facility] [address] [place], [address] Globulin (S) [Mass/Vol] 3.5 g/dL Normal 2.2-4.2 [facility] Comment on above: Order Comment: Order Date: 12/05/24 Order Info: 0786-1 - CMP Order Date: 12/10/23 Order Info: 3016-3 - TSH Order Info: 0553- - FSHLH Performed By: #### L 3100.5060, L500.4050 #### [facility] [address] [place], [address] Glucose [Mass/Vol] 109 mg/dL High 70-99 [facility] Comment on above: Order Comment: Order Date: 12/05/24 Order Info: 0786-1 - CMP Order Date: 12/10/23 Order Info: 3016-3 - TSH Order Info: 0553 - FSHLH Performed By: #### L 3100.5060, L500.4050 #### [facility] [address] [place], [address] Potassium [Moles/Vol] 4.0 mmol/L Normal 3.3-5.1 [facility] Comment on above: Order Comment: Order Date: 12/05/24 Order Info: 0786-1 - CMP Order Date: 12/10/23 Order Info: 3016-3 - TSH Order Info: 0553- - FSHLH Performed By: #### L 3100.5060, L500.4050 #### [facility] [address] [place], [address] Sodium [Moles/Vol] 140 mmol/L Normal 133-145 [facility] Comment on above: Order Comment: Order Date: 12/05/24 Order Info: 0786-1 - CMP Order Date: 12/10/23 Order Info: 3016-3 - TSH Order Info: 0553-1 - FSHLH Performed By: #### L 3100.5060, L500.4050 #### [facility] [address] [place], [address] T PROT 7.8 g/dL Normal 5.9-8.4 [facility] Comment on above: Order Comment: Order Date: 12/05/24 Order Info: 0786-1 - CMP Order Date: 12/10/23 Order Info: 3016-3 - TSH Order Info: 05 - FSHLH Performed By: #### L 3100.5060, L500.4050 #### [facility] [address] [place], [place], [address] Urea nitrogen [Mass/Vol] 11 mg/dL Normal 4-19 [facility] Comment on above: Order Comment: Order Date: 12/05/24 Order Info: 0786-1 - CMP Order Date: 12/10/23 Order Info: 3016-3 - TSH Order Info: 05 - FSHLH Performed By: #### L 3100.5060, L500.4050 #### [facility] [address] [place], [place], [address] FSH and LHon 12-05-2024 FSH 10.9 mIU/mL Normal [facility] Comment on above: Order Comment: Order Date: 12/05/24 Order Info: 0786-1 - CMP Order Date: 12/10/23 Order Info: 3016-3 - TSH Order Info: 05 - FSHLH Result Comment: FEMA LE: Follicular: 1.4 - 18.1 mIU/mL Midcycle: 3.4 - 33.4 mIU/mL Luteal: 1.5 - 9.1 mIU/mL Post Menopause: 23.0 - 116.3 mIU/mL MALE: 1.4 - 18.1 mIU/mL Performed By: #### L 3100.5055, L501.9520 #### [facility] [address] [place], [place], [address] LH 11.0 mIU/mL Normal [facility] Comment on above: Order Comment: Order Date: 12/05/24 Order Info: 0786-1 - CMP Order Date: 12/10/23 Order Info: 3016-3 - TSH Order Info: 0553-1 - FSHLH Result Comment: FEMA LE: Follicular: 1.9-12.5 mIU/mL Midcycle: 8.7-76.3 mIU/mL Luteal: 0.5-16.9 mIU/mL Post Menopause: 15.9-54.0 mIU/mL MALE: 20-70 Years: 1.5-9.3 mIU/mL >70 Years: 3.1-34.6 mIU/mL Performed By: #### L 3100.5055, L501.9520 #### [facility] [address] [place], [address] L509.3001on 12-05-2024 Testosterone [Mass/Vol] 107.00 ng/dL Low 300-1080 [facility] Comment on above: Order Comment: Order Date: 12/05/24 Order Info: 0786-1 - CMP Order Date: 12/10/23 Order Info: 3016-3 - TSH Order Info: 0553-1 - FSHLH Performed By: #### L 509.3001, L509.6002 #### [facility] [address] [place], [address] L509.6002on 12-05-2024 CORTISOL 11.20 ug/dL High 2.68-10.50 [facility] Comment on above: Order Comment: Order Date: 12/05/24 Order Info: 0786-1 - CMP Order Date: 12/10/23 Order Info: 3016-3 - TSH Order Info: 0553-1 - FSHLH Performed By: #### L 509.3001, L509.6002 #### [facility] [address] [place], [address] Thyroid Stim Hormone (TSH)on 12-05-2024 TSH 2.310 uIU/mL Normal 0.300-4.200 [facility] Comment on above: Order Comment: Order Date: 12/05/24 Order Info: 0786-1 - CMP Order Date: 12/10/23 Order Info: 3016-3 - TSH Order Info: 0553-1 - FSHLH Performed By: #### L 3100.5055, L501.9520 #### [facility] [address] [place], [address] Basophil percentageOrdered B y: Dr. Alanis on 05-29-2022 Chloride [Moles/Vol] 107 mmol/L 98-107 [facility] Cholesterol [Mass/Vol] 140 mg/dL <200 [facility] Comment on above: <200 mg/dL Desirable 200-240 mg/dL Borderline >240 mg/dL High Risk Glucose [Mass/Vol] 97 mg/dL 74-106 [facility] Potassium [Moles/Vol] 3.8 mmol/L 3.5-5.1 [facility] Sodium [Moles/Vol] 138 mmol/L 136-145 [facility] Testosterone [Mass/Vol] 96.50 ng/dL [facility] Comment on above: CENTRAL 90% REFERENC E RANGES MALE AGE <50 197.44 - 669.58 ng/dL MALE AGE > or = 50 187.72 - 684.19 ng/dL FEMALE AGE <50 8.38 - 35.01 ng/dL FEMALE AGE > or = 50 <7.00 - 35.92 ng/dL Effective as of 09/18/20 Triglyceride [Mass/Vol] 105 mg/dL <199 [facility] Comment on above: The drugs N-Acetylcy steine and Metamizole may falsely depress this assay.Serum Triglycerides Reference Interval Normal <150 mg/dL Borderline high 150 - 199 mg/dL High 200 - 499 mg/dL Very High > or = 500 mg/dL Laboratory - Chemistry and C hemistry - challengeOrdered By: Dr. Alanis on 05-29-2022 CO2 [Moles/Vol] 26.0 mmol/L 21.0-32.0 [facility] Urea nitrogen/Creatinine [Mass ratio] 14.2 mg/mg 10-20 [facility] No Panel InformationOrdered By: Dr. Alanis on 05-29-2022 Estimated GFR (MDRD) Amer 122 mL/min >60 [facility] Comment on above: GFR Calc Estimated GFR (MDRD) Non-Af Amer 101 mL/min >60 [facility] Comment on above: Non- GFR Calc Serum or plasma calcium charissa urement (mass/volume)Ordered By: Dr. Alanis on 05-29-2022 Calcium [Mass/Vol] 9.1 mg/dL 8.5-10.1 [facility] Serum or plasma cholesterol in HDL measurement (mass/volume)Ordered By: Dr. Alanis on 05-29-2022 Cholesterol in HDL [Mass/Vol] 34 mg/dL >40 [facility] Comment on above: The drugs N-Acetylcy steine and Metamizole may falsely depress this assay. Reference Range HDL <40 mg/dL Low HDL Cholesterol HDL >or= 60 mg/dL High HDL Cholesterol Serum or plasma cholesterol in VLDL measurement (mass/volume)Ordered By: Dr. Alanis on 05-29-2022 Cholesterol in VLDL [Mass/Vol] 21 mg/dL 5-40 [facility] Serum or plasma creatinine m easurement (mass/volume)Ordered By: Dr. Alanis on 05-29-2022 Creatinine [Mass/Vol] 0.91 mg/dL 0.70-1.30 [facility] Comment on above: The validity of the calculated GFR & GFRAA in patients over 70 years has not been determined. Clinical correlation is essential. Serum or plasma low density lipoprotein (LDL) cholesterol measurement (mass/volume)Ordered By: Dr. Alanis on 05-29-2022 Cholesterol in LDL [Mass/Vol] 85 mg/dL 0-130 [facility] Serum or plasma urea nitroge n measurement (mass/volume)Ordered By: Dr. Alanis on 05-29-2022 Urea nitrogen [Mass/Vol] 13 mg/dL 7-18 [facility] Thin prep Papanicolaou smear with manual screeningOrdered By: Dr. Alanis on 05-29-2022 Thin prep Papanicolaou smear with manual screening 5 5-15 [facility] Vital Signs Date Time Vital Sign Value Performing Clinician Faci lity 11-03-2024 11:39-0400 Body height 182.[address] Waldo ramos MD Work Phone: [facility] 11-03-2024 11:39-0400 Body weight 239.[address] Waldo ramos MD Work Phone: [facility] 10-20-2024 08:37-0400 Body height 182.[address] Waldo ramos MD Work Phone: 0(053)148-503670 [place] [address] 10-20-2024 08:37-0400 Body weight 236.[address] Waldo ramos MD Work Phone: 1(912)745-661370 [place] [address] 09-14-2024 12:59-0400 Body height 182.[address] Waldo ramos MD Work Phone: 1(488)244-664670 [place] [address] 09-14-2024 12:59-0400 Body weight 237.[address] Waldo ramos MD Work Phone: 1(774)001-030070 [place] [address] 08-11-2024 08:25-0400 Body height 182.[address] Waldo ramos MD Work Phone: 5(988)493-034170 [place] [address] 08-11-2024 08:25-0400 Body weight 236.[address] Waldo ramos MD Work Phone: 0(774)283-975370 [place] [address] 07-07-2024 08:42-0400 Body height 182.[address] Waldo ramos MD Work Phone: 3(428)779-599770 [place] [address] 07-07-2024 08:42-0400 Body weight 234.[address] Waldo ramos MD Work Phone: 1(380)985-648370 [place] [address] 06-08-2024 16:30-0400 Body weight 229.[address] Waldo ramos MD Work Phone: 2(996)058-348370 [place] [address] 05-19-2024 09:00-0400 Body height 182.[address] Waldo ramos MD Work Phone: 1(869)146-697570 [place] [address] 05-19-2024 09:00-0400 Body weight 231.[address] Waldo ramos MD Work Phone: 5(383)250-719270 [place] [address] 03-28-2024 08:00-0500 Body weight 226.[address] Waldo ramos MD Work Phone: 6(124)872-778770 [place] [address] 03-17-2024 09:01-0500 Body weight 228.[address] Waldo ramos MD Work Phone: [facility] 02-22-2024 13:56-0500 Body weight 225.[address] Waldo ramos MD Work Phone: [facility] 06-11-2023 14:47-0400 Body height 182.88 cm [facility] 06-11-2023 14:47-0400 Body weight 211.82 kg [facility] 05-07-2023 09:00-0400 Body height 182.88 cm [facility] 05-07-2023 09:00-0400 Body weight 215.36 kg [facility] 04-16-2023 08:00-0500 Body weight 218.81 kg [facility] 04-02-2023 08:00-0500 Body height 182.88 cm [facility] 04-02-2023 08:00-0500 Body weight 222.98 kg [facility] 03-17-2023 14:00-0500 Body weight 224.16 kg [facility] Encounters Encounter Date Encounter Type Care Provider Facility Start: 2025 ambulatory Waldo Alanis [facility] lity:[facility] Start: 12-22-2024 End: 12-23-2024 ambulatory Waldo Alanis Facility:[facility] Start: 12-05-2024 End: 12-05-20[facility] Start: 11-03-2024 End: 11-22-[address] Satnam Omer MD -[facility] ices Work Phone: Start: 11-03-2024 End: 11-22-[address] Waldo Alanis MD Work Phone: -[facility] Start: 10-20-2024 End: 10-23-[address] Waldo Alanis MD Work Phone: -[facility] Start: 10-20-2024 End: 10-23-[address] Satnam Omer MD -[facility]ritional Serv ices Work Phone: Start: 09-14-2024 End: 09-22-[address] Waldo Alanis MD Work Phone: -[facility]al Services Start: 09-14-2024 End: 09-22-[address] Satnam Omer MD -Nutritional Serv ices Work Phone: Start: 08-11-2024 End: 08-22-[address] Waldo Alanis MD Work Phone: -[facility] Services Start: 08-11-2024 End: 08-22-[address] Satnam Omer MD -Nutritional Serv ices Work Phone: Start: 07-07-2024 End: 07-23-[address] Waldo Alanis MD Work Phone: [facility] Work Phone: Start: 07-07-2024 End: 07-23-[address] Satnam Omer MD -Nutritional Serv ices Work Phone: Start: 06-08-2024 End: 06-22-[address] Satnam Omer MD -Nutritional Serv ices Work Phone: Start: 06-08-2024 End: 06-22-2024 ambulatory Satnam Brandi Omer Facility:[facility] Start: 05-19-2024 End: 05-23-[address] Waldo Alanis MD Work Phone: [facility] Work Phone: Start: 05-19-2024 End: 05-23-[address] Satnam Omer MD -Nutritional Serv ices Work Phone: Start: 04-14-2024 End: 04-22-20[facility] Start: 04-14-2024 End: 04-22-[address] Satnam Omer MD -Nutritional Serv ices Work Phone: Start: 03-17-2024 End: 03-25-2024 ambulatory Waldo Alanis Facility:[facility] Start: 03-17-2024 End: 03-25-[address] Satnam Omer MD -Nutritional Serv ices Work Phone: Start: 02-22-2024 End: 02-23-2024 ambulatory [facility] Facility:[facility] Start: 02-22-2024 End: 02-23-[address] Satnam Omer MD -Nutritional Serv ices Work Phone: Start: 01-11-2024 End: 01-23-2024 ambulatory [facility] Facility:[facility] Start: 06-11-2023 End: 06-23-2023 ambulatory [facility] Work Phone: Start: 06-11-2023 End: 06-23-2023 Discharged Recurring [facility] Work Phone: Start: 05-07-2023 End: 05-24-2023 ambulatory [facility] Work Phone: Start: 05-07-2023 End: 05-24-2023 Discharged Recurring [facility] Work Phone: Start: 04-16-2023 End: 04-23-2023 ambulatory [facility] Work Phone: Start: 04-16-2023 End: 04-23-2023 Discharged Recurring [facility] Work Phone: Start: 03-17-2023 End: 03-25-2023 ambulatory [facility] Work Phone: Start: 03-17-2023 End: 03-25-2023 Discharged Recurring [facility] Work Phone: Start: 05-29-2022 End: 05-29-2022 ambulatory [facility] Work Phone: Start: 05-29-2022 End: 05-29-2022 Patient encounter procedure [facility] Payers Date Payer Category Payer Self-pay [id number] 2023 Unknown [id number] Unknown [id number] 2.16.8 [id number] Unknown [id number] 2.16.8 [id number] Unknown [id number] 2.16.8 [id number] Unknown [id number] 2.16.8 [id number] Unknown [id number] 2.16.8 [id number] Unknown [id number] 2.16.8 [id number] Unknown [id number] 2.16.8 [id number] Unknown [id number] 2.16.8 [id number] Unknown [id number] 2.16.8 [id number] Unknown [id number] 2.16.8 [id number] Unknown [id number] 2.16.8 [id number] Unknown [id number] 2.16.8 [id number] Unknown [id number] 2.16.8 [id number] Unknown [id number] 2.16.8 [id number] Social History Date Type Detail Facility Start: 09-10-2016 End: 09-10-2016 Tobacco smoking status OHIS Unknown if ever smoked [facility] Start: 1990 Sex Assigned At Male [facility] Start: 12-21-2023 [facility] Start: 05-24-2024 Sex Male (finding) [facility] Sex Male [facility] Evaluation note Note Date & Type Note Facility Evaluation note No assessment information availa ble [facility] Work Phone: Reason for referral (narrative) Note Date & Type Note Facility Reason for referral (narrative) No reason for referral information available [facility] Work Phone: Advance Directives No Advanced Directives Records Found Advance Directive Response Recorded Date/ Time Living Will No September 10, 2016 9:43am Power of Folder Tier No September 10 7 9:43am Advance Directive Response Recorded Date/ Time Living Will No September 10, 2016 8:43am Power of Folder Tier No September 10 7 8:43am Advance Directive Response Recorded Date/ Time Living Will No January 23 1:23am Do you have a Healthcare Power of Folder Tier? No January 24, 2024 1:23am Living Will No March 26 2:47am Do you have a Healthcare Power of Folder Tier? No March 26, 2024 2:47am Living Will No February 23 1:15am Do you have a Healthcare Power of Folder Tier? No February 24, 2024 1:15am Living Will No April 23, 2024 2:08am Do you have a Healthcare Power of Folder Tier? No April 23, 2024 2:08am Advance Directive Response Recorded Date/ Time Living Will No March 26 2:47am Do you have a Healthcare Power of Folder Tier? No March 26, 2024 2:47am Living Will No May 24, 2024 12:44am Do you have a Healthcare Power of Folder Tier? No May 24, 2024 12:44am Living Will No June 23, 2024 12 :16am Do you have a Healthcare Power of Folder Tier? No June 23, 2024 12:16am Living Will No April 23, 2024 2:08am Do you have a Healthcare Power of Folder Tier? No April 23, 2024 2:08am Advance Directive Response Recorded Date/ Time Living Will No May 24, 2024 12:44am Do you have a Healthcare Power of Folder Tier? No May 24, 2024 12:44am Living Will No June 23, 2024 12 :16am Do you have a Healthcare Power of Folder Tier? No June 23, 2024 12:16am Living Will No April 23, 2024 2:08am Do you have a Healthcare Power of Folder Tier? No April 23, 2024 2:08am Living Will No July 24, 2024 1 2:11am Do you have a Healthcare Power of Folder Tier? No July 24, 2024 12:11am Advance Directive Response Recorded Date/ Time Living Will No May 24, 2024 12:44am Do you have a Healthcare Power of Folder Tier? No May 24, 2024 12:44am Living Will No June 23, 2024 12 :16am Do you have a Healthcare Power of Folder Tier? No June 23, 2024 12:16am Living Will No July 24, 2024 1 2:11am Do you have a Healthcare Power of Folder Tier? No July 24, 2024 12:11am Advance Directive Response Recorded Date/ Time Living Will No June 23, 2024 12 :16am Do you have a Healthcare Power of Folder Tier? No June 23, 2024 12:16am Living Will No July 24, 2024 1 2:11am Do you have a Healthcare Power of Folder Tier? No July 24, 2024 12:11am Advance Directive Response Recorded Date/ Time Living Will No July 24, 2024 1 2:11am Do you have a Healthcare Power of Folder Tier? No July 24, 2024 12:11am Chief Complaint and Reason for Visit Chief Complaint MORBID OBESITY Chief Complaint MORBID OBESITY MORBID OBESITY Chief Complaint MORBID OBESITY MORBID OBESITY MORBID OBESITY Chief Complaint MORBID OBESITY MORBID OBESITY MORBID OBESITY MORBID OBESITY Chief Complaint Admit Date MORBID OBESITY February 22, 2024 2:00pm MORBID OBESITY March 17, 2024 9 :00am MORBID OBESITY April 14, 2024 9:00am MORBID OBESITY May 19, 2024 9:0 0am Chief Complaint Admit Date MORBID OBESITY April 14, 2024 9:00am MORBID OBESITY May 19, 2024 9:0 0am MORBID OBESITY June 08, 2024 4:1 8pm MORBID OBESITY July 07, 2024 8:30a m Chief Complaint Admit Date MORBID OBESITY May 19, 2024 9:0 0am MORBID OBESITY June 08, 2024 4:1 8pm MORBID OBESITY July 07, 2024 8:30a m MORBID OBESITY August 11, 2024 8:30 am Chief Complaint Admit Date MORBID OBESITY June 08, 2024 4:1 8pm MORBID OBESITY July 07, 2024 8:30a m MORBID OBESITY August 11, 2024 8:30 am MORBID OBESITY September 14, 2024 1:00 pm Chief Complaint Admit Date MORBID OBESITY July 07, 2024 8:30a m MORBID OBESITY August 11, 2024 8:30 am MORBID OBESITY September 14, 2024 1:00 pm MORBID OBESITY October 20, 2024 8: 30am Chief Complaint Admit Date MORBID OBESITY August 11, 2024 8:30 am MORBID OBESITY September 14, 2024 1:00 pm MORBID OBESITY October 20, 2024 8: 30am MORBID OBESITY November 03, 2024 11:37am Summary Purpose Family History No Family History Records Found Additional Source Comments Care Teams (unrecognized sec tion and content) Team Status: Active Member Role Status Dates Dr. Cassius Alanis MD Family Provider Active Dr. Cassius Alanis MD Primary Care Provider Activ e Team Status: Inactive Member Role Status Dates Dr. Cassius Alanis MD Primary Care Provider, Attending Provider, Referring Provider Active Team Status: Inactive Member Role Status Dates Dr. Cassius Alanis MD Primary Care Provider Activ e Dr. Satnam Omer MD Attending Provider Active Team Status: Inactive Member Role Status Dates Dr. Cassius Alanis MD Primary Care Provider Activ e Dr. Satnam Omer MD Attending Provider, Referrin g Provider Active Team Status: Active Member Role Status Dates Dr. Waldo Alanis MD Family Provider Active Dr. Waldo Alanis MD Primary Care Provider Acti ve Team Status: Inactive Member Role Status Dates Dr. Waldo Alanis MD Primary Care Provider Acti ve Dr. Satnam Omer MD Attending Provider, Referrin g Provider Active Team Status: Inactive Member Role Status Dates Dr. Waldo Alanis MD Primary Care Provider Acti ve Dr. Satnam Omer MD Attending Provider Active Team Status: Active Member Role Status Dates Dr. Waldo Alanis MD Primary Care Provider Acti ve Team Status: Inactive Member Role Status Dates Dr. Waldo Alanis MD Primary Care Provider Acti ve Start: February 22, 2024 End: February 23, 2024 Dr. Satnam Omer MD Attending Provider Active Start: February 22, 2024 End: February 23, 2024 Dr. Satnam Omer MD Referring Provider Active Start: February 22, 2024 End: February 23, 2024 Team Status: Inactive Member Role Status Dates Dr. Waldo Alanis MD Primary Care Provider Acti ve Start: March 17, 2024 End: March 25, 2024 Dr. Satnam Omer MD Attending Provider Active Start: March 17, 2024 End: March 25, 2024 Dr. Satnam Omer MD Referring Provider Active Start: March 17, 2024 End: March 25, 2024 Team Status: Inactive Member Role Status Dates Dr. Waldo Alanis MD Primary Care Provider Acti ve Start: April 14, 2024 End: April 22, 2024 Dr. Satnam Omer MD Attending Provider Active Start: April 14, 2024 End: April 22, 2024 Dr. Satnam Omer MD Referring Provider Active Start: April 14, 2024 End: April 22, 2024 Team Status: Inactive Member Role Status Dates Dr. Waldo Alanis MD Primary Care Provider Acti ve Start: May 19, 2024 End: May 23, 2024 Dr. Satnam Omer MD Attending Provider Active Start: May 19, 2024 End: May 23, 2024 Dr. Satnam Omer MD Referring Provider Active Start: May 19, 2024 End: May 23, 2024 Team Status: Inactive Member Role Status Dates Dr. Waldo Alanis MD Primary Care Provider Acti ve Start: June 08, 2024 End: June 22, 2024 Dr. Satnam Omer MD Attending Provider Active Start: June 08, 2024 End: June 22, 2024 Dr. Satnam Omer MD Referring Provider Active Start: June 08, 2024 End: June 22, 2024 Team Status: Inactive Member Role Status Dates Dr. Waldo Alanis MD Primary Care Provider Acti ve Start: July 07, 2024 End: July 23, 2024 Dr. Satnam Omer MD Attending Provider Active Start: July 07, 2024 End: July 23, 2024 Dr. Satnam Omer MD Referring Provider Active Start: July 07, 2024 End: July 23, 2024 Team Status: Active Member Role/Relationship Status Dates Dr. Waldo Alanis MD Primary Care Provider Acti ve Team Status: Inactive Member Role/Relationship Status Dates Dr. Waldo Alanis MD Primary Care Provider Acti ve Start: May 19, 2024 End: May 23, 2024 Dr. Satnam Omer MD Attending Provider Active Start: May 19, 2024 End: May 23, 2024 Dr. Satnam Omer MD Referring Provider Active Start: May 19, 2024 End: May 23, 2024 Team Status: Inactive Member Role/Relationship Status Dates Dr. Waldo Alanis MD Primary Care Provider Acti ve Start: June 08, 2024 End: June 22, 2024 Dr. Satnam Omer MD Attending Provider Active Start: June 08, 2024 End: June 22, 2024 Dr. Satnam Omer MD Referring Provider Active Start: June 08, 2024 End: June 22, 2024 Team Status: Inactive Member Role/Relationship Status Dates Dr. Waldo Alanis MD Primary Care Provider Acti ve Start: July 07, 2024 End: July 23, 2024 Dr. Satnam Omer MD Attending Provider Active Start: July 07, 2024 End: July 23, 2024 Dr. Satnam Omer MD Referring Provider Active Start: July 07, 2024 End: July 23, 2024 Team Status: Inactive Member Role/Relationship Status Dates Dr. Waldo Alanis MD Primary Care Provider Acti ve Start: August 11, 2024 End: August 22, 2024 Dr. Satnam Omer MD Attending Provider Active Start: August 11, 2024 End: August 22, 2024 Dr. Satnam Omer MD Referring Provider Active Start: August 11, 2024 End: August 22, 2024 Team Status: Inactive Member Role/Relationship Status Dates Dr. Waldo Alanis MD Primary Care Provider Acti ve Start: June 08, 2024 End: June 22, 2024 Dr. Satnam Omer MD Attending Provider Active Start: June 08, 2024 End: June 22, 2024 Dr. Satnam Omer MD Referring Provider Active Start: June 08, 2024 End: June 22, 2024 Team Status: Inactive Member Role/Relationship Status Dates Dr. Waldo Alanis MD Primary Care Provider Acti ve Start: July 07, 2024 End: July 23, 2024 Dr. Satnam Omer MD Attending Provider Active Start: July 07, 2024 End: July 23, 2024 Dr. Satnam Omer MD Referring Provider Active Start: July 07, 2024 End: July 23, 2024 Team Status: Inactive Member Role/Relationship Status Dates Dr. Waldo Alanis MD Primary Care Provider Acti ve Start: August 11, 2024 End: August 22, 2024 Dr. Satnam Omer MD Attending Provider Active Start: August 11, 2024 End: August 22, 2024 Dr. Satnam Omer MD Referring Provider Active Start: August 11, 2024 End: August 22, 2024 Team Status: Inactive Member Role/Relationship Status Dates Dr. Waldo Alanis MD Primary Care Provider Acti ve Start: September 14, 2024 End: September 22, 2024 Dr. Satnam Omer MD Attending Provider Active Start: September 14, 2024 End: September 22, 2024 Dr. Satnam Omer MD Referring Provider Active Start: September 14, 2024 End: September 22, 2024 Team Status: Inactive Member Role/Relationship Status Dates Dr. Waldo Alanis MD Primary Care Provider Acti ve Start: July 07, 2024 End: July 23, 2024 Dr. Satnam Omer MD Attending Provider Active Start: July 07, 2024 End: July 23, 2024 Dr. Satnam Omer MD Referring Provider Active Start: July 07, 2024 End: July 23, 2024 Team Status: Inactive Member Role/Relationship Status Dates Dr. Waldo Alanis MD Primary Care Provider Acti ve Start: August 11, 2024 End: August 22, 2024 Dr. Satnam Omer MD Attending Provider Active Start: August 11, 2024 End: August 22, 2024 Dr. Satnam Omer MD Referring Provider Active Start: August 11, 2024 End: August 22, 2024 Team Status: Inactive Member Role/Relationship Status Dates Dr. Waldo Alanis MD Primary Care Provider Acti ve Start: September 14, 2024 End: September 22, 2024 Dr. Satnam Omer MD Attending Provider Active Start: September 14, 2024 End: September 22, 2024 Dr. Satnam Omer MD Referring Provider Active Start: September 14, 2024 End: September 22, 2024 Team Status: Inactive Member Role/Relationship Status Dates Dr. Waldo Alanis MD Primary Care Provider Acti ve Start: October 20, 2024 End: October 23, 2024 Dr. Satnam Omer MD Attending Provider Active Start: October 20, 2024 End: October 23, 2024 Dr. Satnam Omer MD Referring Provider Active Start: October 20, 2024 End: October 23, 2024 Team Status: Active Member Role/Relationship Status Dates Dr. Waldo Alanis MD Primary care physician Act julia Team Status: Inactive Member Role/Relationship Status Dates Dr. Waldo Alanis MD Primary care physician Act julia Start: August 11, 2024 End: August 22, 2024 Dr. Satnam Omer MD Attending physician Active Start: August 11, 2024 End: August 22, 2024 Dr. Satnam Omer MD Referring Provider Active Start: August 11, 2024 End: August 22, 2024 Team Status: Inactive Member Role/Relationship Status Dates Dr. Waldo Alanis MD Primary care physician Act julia Start: September 14, 2024 End: September 22, 2024 Dr. Satnam Omer MD Attending physician Active Start: September 14, 2024 End: September 22, 2024 Dr. Satnam Omer MD Referring Provider Active Start: September 14, 2024 End: September 22, 2024 Team Status: Inactive Member Role/Relationship Status Dates Dr. Waldo Alanis MD Primary care physician Act julia Start: October 20, 2024 End: October 23, 2024 Dr. Satnam Omer MD Attending physician Active Start: October 20, 2024 End: October 23, 2024 Dr. Satnam Omer MD Referring Provider Active Start: October 20, 2024 End: October 23, 2024 Team Status: Inactive Member Role/Relationship Status Dates Dr. Waldo Alanis MD Primary care physician Act julia Start: November 03, 2024 End: November 22, 2024 Dr. Satnam Omer MD Attending physician Active Start: November 03, 2024 End: November 22, 2024 Dr. Satnam Omer MD Referring Provider Active Start: November 03, 2024 End: November 22, 2024 Goals (unrecognized section and content) Goals may be documented in a n alternate sectionGoals may be documented in an alternate sectionGoals may be documented in an alternate sectionGoals may be documented in an alternate sectionGoals may be documented in an alternate sectionGoals may be documented in an alternate sectionGoals may be documented in an alternate sectionGoals may be documented in an alternate sectionGoals may be documented in an alternate sectionGoals may be documented in an alternate sectionGoals may be documented in an alternate section (unrecognized sect ion and content) No Status Records Found INFORMATION SOURCE (unrecogn ized section and content) DATE CREATED AUTHOR 12/25/2024 [facility] FOR RECORDS PERTAINING TO PATIENTS WHO ARE OR HAVE BEEN ENROLLED IN A CHEMICAL DEPENDENCY/SUBSTANCEABUSE PROGRAM, SOME INFORMATION MAY BE OMITTED. This clinical summary was aggregated from multiple sources. Caution should be exercised in using it in the provision of clinical care. This summary normalizes information from multiple sources, and as a consequence, information in this document may materially change the coding, format and clinical context of patient data. In addition, data may be omitted in some cases. CLINICAL DECISIONS SHOULD BE BASED ON THE PRIMARY CLINICAL RECORDS. [employer] provides no warranty or guarantee of the accuracy or completeness of information in this document.
[2025-01-18 08:02] LABS: Hematocrit 41.5 % (40-54); Hemoglobin 13.4 g/dL (13.0-16.5); Immature Granulocytes Count 0.040 X10^3/uL (0.0-0.0); Mean Corp Hgb Conc 32.3 g/dL (32-36); Mean Corpuscular Volume 86.5 fL (80-94); Mean Platelet Vol. 9.6 fl (6.2-12.0); NRBC Flagged by Analyzer 0 % (0-5); Platelet Count 262 K/mm3 (150-450); RBC Distribution Width CV 13.9 % (11.6-14.6); RBC Distribution Width SD 43.8 fl (35.1-43.9); Red Blood Count 4.80 M/mm3 (4.6-6.2); White Blood Count 7.6 K/mm3 (4.4-11.0)
[2025-01-18 08:02] LABS: Mucous, Urine 1+ /hpf (<or=2+); Red Blood Cells-Urine 0-5 SEEN /hpf (0-5); Squamous Epithelial Cells - UA 0-5 SEEN /hpf (0-5)
[2025-01-18 08:25] LABS: Anion Gap 13 (5-15); BUN 10 mg/dL (4-19); BUN/Creat Ratio 10.7 RATIO (10-20); Calcium,Total 9.4 mg/dL (7.6-11.0); Carbon Dioxide 22.6 mmol/L (21.0-32.0); Chloride 104 mmol/L (98-108); Glucose 117 mg/dL (70-99); Potassium 3.6 mmol/L (3.3-5.1)
[2025-01-18 08:44] VITALS: BP 144/80; PULSE 69; RESP 16; TEMP 35.6; O2SAT 100
== END 2025-01-18 08:49 | disposition home or self-care (01) ==
PROVIDERS: Emergency Provider Emergency Medicine; PCP Family Medicine; Visit Provider Emergency Medicine
DX: N13.2 Hydronephrosis with renal and ureteral calculous obstruction (principal); N13.4 Hydroureter
CPT/HCPCS: 74176; 80048; 81001; 85025; 96361; 96374; 96375; 99283; A4216; J2405

== ENCOUNTER 2025-02-09 09:00 | Outpatient (RCR) | payer BC, SELFPAY | END 2025-02-22 23:59 | LOC: NS 09:00 | PROVIDERS: PCP Family Medicine; Referring Provider Internal Medicine Pulmonary Disease; Visit Provider Internal Medicine Pulmonary Disease | DX: Z71.3 Dietary counseling and surveillance (principal); E66.01 Morbid (severe) obesity due to excess calories; Z68.44 Body mass index [BMI] 60.0-69.9, adult; G47.33 Obstructive sleep apnea (adult) (pediatric); R09.02 Hypoxemia | CPT/HCPCS: 97803 ==